=== PATIENT | female | born 1990 | race Caucasian/White ===

== ENCOUNTER 2021-09-28 08:06 | Inpatient (IN) | payer OTHER ==
[~2021-09-28] VITALS: Ht 172.7 cm; Wt 91.2 kg
[~2021-09-28 08:06] MED LIST: BENADRYL25 MG PO; MACROBID 100 M100 MG PO; PRENATAL TABLE1 EAC1 PO; ZYRTEC10 M3 PO
[2021-09-30] MEDS ORDERED: DERMOPLAST PAIN78 GM TOP (07:52)
[2021-09-30] MEDS ORDERED: IBUPROFEN400 MG PO (07:52)
[2021-09-30] MEDS ORDERED: PRENATE ADVANCE PO (07:52)
[2021-09-30] MEDS ORDERED: CEFADROXIL500 MG PO (07:52)
[2021-09-30] MEDS ORDERED: DOCUSATE SODIU100 MG PO (07:52)
== END 2021-09-30 10:15 | disposition home or self-care (01) | DRG 807 ==
LOC: LDR 08:06 → SURG-SUITE 17:14
PROVIDERS: ADMIT Obstetrics & Gynecology; ATTEND Obstetrics & Gynecology
PROC: 10E0XZZ Delivery of Products of Conception, External Approach (ICD-10-PCS; principal; 2021-09-28)
PROC: 0KQM0ZZ Repair Perineum Muscle, Open Approach (ICD-10-PCS; 2021-09-28)
PROC: 10907ZC Drainage of Amniotic Fluid, Therapeutic from Products of Conception, Via Natural or Artificial Opening (ICD-10-PCS; 2021-09-28)
PROC: 3E0P7VZ Introduction of Hormone into Female Reproductive, Via Natural or Artificial Opening (ICD-10-PCS; 2021-09-28)
PROC: 4A1HXFZ Monitoring of Products of Conception, Cardiac Rhythm, External Approach (ICD-10-PCS; 2021-09-28)
DX: O70.1 Second degree perineal laceration during delivery (principal); Z37.0 Single live birth; Z3A.39 39 weeks gestation of pregnancy